=== PATIENT | male | born 1995 | race Two or more races ===

== ENCOUNTER 2024-12-31 04:55 | Emergency (ER) | payer MEDICAID ==
[~2024-12-31] VITALS: Ht 175.3 cm; Wt 104.5 kg
[2024-12-31 05:01] VITALS: TEMP 98.8
[2024-12-31 05:48] LABS: APPEARANCE,URINE CLEAR (CLEAR); BILIRUBIN,URINE NEGATIVE (NEGATIVE); COLOR,URINE LIGHT YELLOW (YELLOW); GLUCOSE, URINE (UA) NEGATIVE (NEGATIVE); LEUKOCYTE ESTERASE ,URINE SMALL (NEGATIVE); NITRATE,URINE NEGATIVE (NEGATIVE); OCCULT BLOOD,URINE LARGE (NEGATIVE); PROTEIN,URINE NEGATIVE (NEGATIVE); SPECIFIC GRAVITIY, URINE 1.018 (1.003-1.030); UROBILINOGEN,URINE <=1.0 mg/dL (<=1.0)
[2024-12-31 05:59] LABS: BACTERIA,URINE None Seen /HPF (None Seen); SQUAMOUS EPITHELIAL CELL,UR Few /LPF (None Seen)
[2024-12-31 06:33] LABS: CALCIUM, TOTAL 8.4 mg/dL (8.8-10.5); CREATININE 1.45 mg/dL (0.60-1.30); POTASSIUM 3.7 mmol/L (3.5-5.1)
[2024-12-31 06:34] LABS: BASOPHILS % (AUTO) 0.4 % (0.0-2.0); EOSINOPHILS % (AUTO) 0.9 % (1.0-6.0); HEMATOCRIT 44.3 % (41-53); HEMOGLOBIN 14.7 g/dL (13.5-17.5); LYMPHOCYTES # (AUTO) 1.4 K/uL (1.0-4.8); LYMPHOCYTES % (AUTO) 14.2 % (22.0-44.0); MEAN CORPUSCULAR HEMOGLOBIN 28.2 pg (26.0-34.0); MEAN CORPUSCULAR HGB CONC 33.2 G/dL (31.0-37.0); MEAN CORPUSCULAR VOLUME 85 fL (80-100); MONOCYTES # (AUTO) 0.9 K/uL (0.1-1.0); MONOCYTES % (AUTO) 8.6 % (2.0-9.0); NEUTROPHILS # (AUTO) 7.6 K/uL (1.8-7.7); NEUTROPHILS % (AUTO) 75.9 % (40.0-70.0); PLATELET COUNT (AUTO) 205 K/uL (150-450); RED BLOOD CELL COUNT(AUTO) 5.23 MIL/uL (4.50-5.90); WHITE BLOOD COUNT (AUTO) 10.1 K/uL (4.5-11.0)
[2024-12-31 06:41] LABS: ALBUMIN 3.6 g/dL (3.4-5.0); BILIRUBIN,DIRECT 0.1 mg/dL (0.00-0.20); BILIRUBIN,TOTAL 0.5 mg/dL (0.1-1.0)
[2024-12-31] MEDS: SODIUM CHLORIDE 0.9% 1,000 ML IV ONE (07:24)
[2024-12-31] MEDS: ONDANSETRON HCL 4 MG/2 ML VIAL IVP ONE (07:24)
[2024-12-31] MEDS: MORPHINE SULFATE 4 MG/ML SYRINGE IVP ONE (07:24)
[2024-12-31] MEDS: KETOROLAC TROMETHAMINE 30 MG/ML VIAL IVP ONE (07:25)
[2024-12-31] MEDS: HYDROCODONE/ACETAMINOPHEN 5-325 MG TABLET PO ONE (09:41)
[2024-12-31] MEDS ORDERED: TAMS0.4C94 PO (09:55)
[2024-12-31] MEDS ORDERED: POLY119P3 PO (09:55)
[2024-12-31] MEDS ORDERED: IBUP-1554 PO (09:55)
[2024-12-31] MEDS ORDERED: HYDR-4062 PO (09:55)
[2024-12-31 10:02] VITALS: BP 135/87; PULSE 71; RESP 20; O2SAT 97
== END 2024-12-31 10:07 | disposition home or self-care (01) ==
LOC: EMS 04:58
DX: N20.9 Urinary calculus, unspecified (principal)
CPT/HCPCS: 99285; 74176; 96374; 96375; 96361; 80048; 80076; 81001; 83690; 85025; 36415; J1885; J2270; J2405; J7030